=== PATIENT | male | born 1950 | race Caucasian/White ===

== ENCOUNTER → 2017-04-12 | Outpatient (CLI) | payer MEDICARE ==
[2017-04-15 10:52] LABS: Large VLDL Particle Number,NMR 6.2 nmol/L (<=2.7)
== END | disposition home or self-care (01) ==
LOC: LABWHC1 07:28
PROVIDERS: ATTEND Internal Medicine Cardiovascular Disease
DX: I25.10 Atherosclerotic heart disease of native coronary artery without angina pectoris (principal)
CPT/HCPCS: 36415; 83704

== ENCOUNTER → 2018-02-07 | Outpatient (CLI) | payer MEDICARE ==
[2018-02-10 16:06] LABS: Large VLDL Particle Number,NMR 3.8 nmol/L (<=2.7)
== END | disposition home or self-care (01) ==
LOC: LABWHC1 06:51
PROVIDERS: ATTEND Internal Medicine Cardiovascular Disease
DX: I25.10 Atherosclerotic heart disease of native coronary artery without angina pectoris (principal)
CPT/HCPCS: 36415; 83704

== ENCOUNTER 2019-03-01 18:18 | Emergency (ER) | payer MEDICARE ==
[2019-03-01 18:29] VITALS: RESP 18
[2019-03-01] MEDS ORDERED: SODIUM CHLORIDE 0.9% 1,000 ML IV STA (19:43)
[2019-03-01] MEDS ORDERED: PANTOPRAZOLE 40 MG/10 ML VIAL IVP STA (19:44)
[2019-03-01] MEDS ORDERED: LOPERAMIDE 2 MG CAP PO STA (19:48)
--- NOTE | 2019-03-01 19:53 | ED ---
General Adult HPI - General Source: patient Mode of arrival: ambulatory Limitations: no limitations <Scott Smalls - Last Filed: 03/02/19 05:51> <Higinio Nava - Last Filed: 03/02/19 07:31> - General Chief complaint: Nausea/Vomiting/Diarrhea Stated complaint: Diarrhea Time Seen by Provider: 03/01/19 19:30 - History of Present Illness Initial comments: Patient is 68-year-old male presenting to emergency Department with a chief complaint of diarrhea. Patient reports 8 days ago he was diagnosed with a sinus infection and given Augmentin. Patient was advised to take the medication with food. Patient reports over the last 4 days he has developed continuos diarrhea. Patient reports poor oral intake of food and liquids. Patient denies any nausea or vomiting. Patient reports the diarrhea has a foul odor. Patient denies hematochezia or melena. Patient reports suprapubic pressure. Patient denies increased urgency, frequency or dysuria. Patient denies any testicular swelling or pain. Patient denies taking medication to alleviate the symptoms. Patient denies any night sweats fevers or chills. Patient has no other complaints. (Scott Smalls) - Related Data Home Medications Medication Instructions Recorded Confirmed Aspirin EC [Ecotrin Low Dose] 81 mg PO DAILY 03/01/19 03/01/19 Atorvastatin [Lipitor] 40 mg PO DAILY 03/01/19 03/01/19 Ezetimibe 10 mg PO DAILY 03/01/19 03/01/19 Fenofibrate Nanocrystallized 145 mg PO DAILY 03/01/19 03/01/19 [Fenofibrate] Lisinopril [Zestril] 30 mg PO DAILY 03/01/19 03/01/19 Metoprolol Tartrate 25 mg PO BID 03/01/19 03/01/19 Montelukast Sodium [Singulair] 10 mg PO HS 03/01/19 03/01/19 Multivitamins, Thera [Multivitamin 1 tab PO DAILY 03/01/19 03/01/19 (formulary)] [place]-3 Acid Ethyl Esters [Lovaza] 1 gm PO QID 03/01/19 03/01/19 Omeprazole 20 mg PO BID 03/01/19 03/01/19 Tadalafil [Cialis] 5 mg PO DAILY 03/01/19 03/01/19 amLODIPine [Norvasc] 10 mg PO DAILY 03/01/19 03/01/19 Previous Rx's Medication Instructions Recorded metroNIDAZOLE [Flagyl] 500 mg PO QID #56 tab 03/01/19 Allergies Allergy/AdvReac Type Severity Reaction Status Date / Time No Known Allergies Allergy Verified 03/01/19 20:28 Review of Systems ROS Other: All systems not noted in ROS Statement are negative. <Scott Smalls - Last Filed: 03/02/19 05:51> ROS Other: All systems not noted in ROS Statement are negative. <Higinio Nava - Last Filed: 03/02/19 07:31> ROS Statement: Those systems with pertinent positive or pertinent negative responses have been documented in the HPI. Past Medical History Past Medical History: Hyperlipidemia, Myocardial Infarction ([place]) Additional Past Medical History / Comment(s): hernia History of Any Multi-Drug Resistant Organisms: None Reported Past Surgical History: Heart Catheterization With Stent Past Psychological History: No Psychological Hx Reported Smoking Status: Never smoker Past Alcohol Use History: Occasional Past Drug Use History: None Reported <Scott Smalls - Last Filed: 03/02/19 05:51> General Exam Limitations: no limitations General appearance: alert, in no apparent distress, obese Head exam: Present: atraumatic, normocephalic, normal inspection Eye exam: Present: normal appearance, PERRL, EOMI Pupils: Present: normal accommodation Neck exam: Present: normal inspection, full ROM Respiratory exam: Present: normal lung sounds bilaterally Cardiovascular Exam: Present: normal rhythm, tachycardia, normal heart sounds GI/Abdominal exam: Present: soft, tenderness (Mild suprapubic tenderness), normal bowel sounds. Absent: guarding, rebound, mass, hernia, other (Negative McBurney point tenderness, negative Rovsing, negative anterior, negative psoas) Extremities exam: Present: normal inspection, full ROM Back exam: Present: normal inspection, full ROM. Absent: CVA tenderness (R), CVA tenderness (L) Neurological exam: Present: alert, oriented X3 Psychiatric exam: Present: normal affect, normal mood Skin exam: Present: warm, intact, normal color <Scott Smalls - Last Filed: 03/02/19 05:51> Course Vital Signs 03/01/19 03/01/1903/01/19 18:25 22:04 23:48 Temperature 98.4 F 99.4 F 99.2 F Pulse Rate 121 H 107 H 114 H Respiratory 18 18 18 Rate Blood Pressure 94/64 126/85 124/99 O2 Sat by Pulse 99 98 97 Oximetry Medical Decision Making - Lab Data Result diagrams: 03/01/19 19:47 03/01/19 19:47 <Scott Smalls - Last Filed: 03/02/19 05:51> - Lab Data Result diagrams: 03/01/19 19:47 03/01/19 19:47 <Higinio Nava - Last Filed: 03/02/19 07:31> - Medical Decision Making Patient is a 68-year-old male presenting to the emergency department with a chief complaint of diarrhea 4 days. Patient was prescribed Augmentin for sinus infection and is currently on day 8 of the 10 day course. Patient reports foul-smelling diarrhea but denies any nausea or vomiting. Patient does have abdominal discomfort. Patient does have leukocytosis. A stool sample was obtained and tested positive for C. diff. Patient does not appear to have severe diarrhea or other symptoms. Patient is eating without issues. Patient will be discharged with a 14 day course of Flagyl. The importance of hygiene was thoroughly discussed with patient and prevention of spreading of C. diff. Patient advised to eat a BRAT diet. Strict return parameters were thoroughly discussed the patient was understanding and agreeable. No repeat testing is required. Patient advised to follow with primary care. Patient advised to return to emergency department if symptoms worsen. (Scott Smalls) I saw this patient in conjunction with the physician assistant paralegal. I performed independent history and physical exam. Agree with case management. (Higinio Nava) - Lab Data Lab Results 03/01/19 03/01/19 03/01/19 Range/Units 19:47 19:47 20:04 WBC 15.1 H (3.8-10.6) k/uL RBC 4.44 (4.30-5.90) m/uL Hgb 14.1 (13.0-17.5) gm/dL Hct 41.2 (39.0-53.0) % MCV 92.7 (80.0-100.0) fL MCH 31.7 (25.0-35.0) pg MCHC 34.2 (31.0-37.0) g/dL RDW 14.0 (11.5-15.5) % Plt Count 208 (150-450) k/uL Neutrophils % 81 % Lymphocytes % 10 % Monocytes % 6 % Eosinophils % 1 % Basophils % 0 % Neutrophils # 12.2 H (1.3-7.7) k/uL Lymphocytes # 1.5 (1.0-4.8) k/uL Monocytes # 1.0 (0-1.0) k/uL Eosinophils # 0.1 (0-0.7) k/uL Basophils # 0.1 (0-0.2) k/uL Sodium 137 (137-145) mmol/L Potassium 3.9 (3.5-5.1) mmol/L Chloride 102 (98-107) mmol/L Carbon Dioxide 25 (22-30) mmol/L Anion Gap 10 mmol/L BUN 19 (9-20) mg/dL Creatinine 1.03 (0.66-1.25) mg/dL Est GFR (CKD-EPI)AfAm 87 (>60 ml/min/1.73 sqM) Est GFR (CKD-EPI)NonAf 75 (>60 ml/min/1.73 sqM) Glucose 125 H (74-99) mg/dL Calcium 9.1 (8.4-10.2) mg/dL Total Bilirubin 0.9 (0.2-1.3) mg/dL AST 28 (17-59) U/L ALT 26 (21-72) U/L Alkaline Phosphatase 51 (38-126) U/L Total Protein 6.9 (6.3-8.2) g/dL Albumin 4.0 (3.5-5.0) g/dL Amylase <30 L (30-110) U/L Lipase 26 (23-300) U/L Urine Color Yellow Urine Appearance Clear (Clear) Urine pH 5.5 (5.0-8.0) Ur Specific [place] 1.030 (1.001-1.035) Urine Protein 1+ H (Negative) Urine Glucose (UA) Negative (Negative) Urine Ketones Negative (Negative) Urine Blood Negative (Negative) Urine Nitrite Negative (Negative) Urine Bilirubin Negative (Negative) Urine Urobilinogen 2.0 (<2.0) mg/dL Ur Leukocyte Esterase Negative (Negative) Urine RBC 3 (0-5) /hpf Urine WBC 5 (0-5) /hpf Ur Squamous Epith Cells <1 (0-4) /hpf Hyaline Casts 6 H (0-2) /lpf Urine Mucus Moderate H (None) /hpf C. difficile (EIA) Intrp (Negative) 03/01/19 Range/Units 21:34 WBC (3.8-10.6) k/uL RBC (4.30-5.90) m/uL Hgb (13.0-17.5) gm/dL Hct (39.0-53.0) % MCV (80.0-100.0) fL MCH (25.0-35.0) pg MCHC (31.0-37.0) g/dL RDW (11.5-15.5) % Plt Count (150-450) k/uL Neutrophils % % Lymphocytes % % Monocytes % % Eosinophils % % Basophils % % Neutrophils # (1.3-7.7) k/uL Lymphocytes # (1.0-4.8) k/uL Monocytes # (0-1.0) k/uL Eosinophils # (0-0.7) k/uL Basophils # (0-0.2) k/uL Sodium (137-145) mmol/L Potassium (3.5-5.1) mmol/L Chloride (98-107) mmol/L Carbon Dioxide (22-30) mmol/L Anion Gap mmol/L BUN (9-20) mg/dL Creatinine (0.66-1.25) mg/dL Est GFR (CKD-EPI)AfAm (>60 ml/min/1.73 sqM) Est GFR (CKD-EPI)NonAf (>60 ml/min/1.73 sqM) Glucose (74-99) mg/dL Calcium (8.4-10.2) mg/dL Total Bilirubin (0.2-1.3) mg/dL AST (17-59) U/L ALT (21-72) U/L Alkaline Phosphatase (38-126) U/L Total Protein (6.3-8.2) g/dL Albumin (3.5-5.0) g/dL Amylase (30-110) U/L Lipase (23-300) U/L Urine Color Urine Appearance (Clear) Urine pH (5.0-8.0) Ur Specific [place] (1.001-1.035) Urine Protein (Negative) Urine Glucose (UA) (Negative) Urine Ketones (Negative) Urine Blood (Negative) Urine Nitrite (Negative) Urine Bilirubin (Negative) Urine Urobilinogen (<2.0) mg/dL Ur Leukocyte Esterase (Negative) Urine RBC (0-5) /hpf Urine WBC (0-5) /hpf Ur Squamous Epith Cells (0-4) /hpf Hyaline Casts (0-2) /lpf Urine Mucus (None) /hpf C. difficile (EIA) Intrp Positive A (Negative) Disposition Is patient prescribed a controlled substance at d/c from ED?: No Time of Disposition: 23:26 <Scott Smalls - Last Filed: 03/02/19 05:51> <Higinio Nava - Last Filed: 03/02/19 07:31> Clinical Impression: Clostridioides difficile infection Disposition: HOME SELF-CARE Condition: Stable Instructions (If sedation given, give patient instructions): C Diff (Clostridium Difficile) Infection (ED), Nutrition Tips for Relief of Diarrhea (ED) Additional Instructions: Please take prescribed medication as directed. Please follow BRAT diet. Please return to emergency department if symptoms worsen. Prescriptions: metroNIDAZOLE [Flagyl] 500 mg PO QID #56 tab Referrals: Miriam Evans III, MD [Primary Care Provider] - 1-2 days
[2019-03-01 20:08] LABS: Basophils # (A) 0.1 k/uL (0-0.2); Basophils % (A) 0 %; Eosinophils # (A) 0.1 k/uL (0-0.7); Eosinophils % (A) 1 %; HCT 41.2 % (39.0-53.0); HGB 14.1 gm/dL (13.0-17.5); Lymphocytes # (A) 1.5 k/uL (1.0-4.8); Lymphocytes % (A) 10 %; MCH 31.7 pg (25.0-35.0); MCHC 34.2 g/dL (31.0-37.0); MCV 92.7 fL (80.0-100.0); Mean Platelet Volume 7.7; Monocytes % (A) 6 %; Neutrophils # (A) 12.2 k/uL (1.3-7.7); Neutrophils % (A) 81 %; Platelet Count 208 k/uL (150-450); RBC 4.44 m/uL (4.30-5.90); WBC 15.1 k/uL (3.8-10.6)
[2019-03-01 20:24] LABS: ALT 26 U/L (21-72); AST 28 U/L (17-59); African American GFR (CKD) 87 (>60 ml/min/1.73 sqM); Alkaline Phosphatase 51 U/L (38-126); Amylase <30 U/L (30-110); Anion Gap 10 mmol/L; Blood Urea Nitrogen 19 mg/dL (9-20); Calcium 9.1 mg/dL (8.4-10.2); Carbon Dioxide 25 mmol/L (22-30); Chloride 102 mmol/L (98-107); Glucose 125 mg/dL (74-99); Potassium 3.9 mmol/L (3.5-5.1); Sodium 137 mmol/L (137-145); Total Bilirubin 0.9 mg/dL (0.2-1.3); Total Protein 6.9 g/dL (6.3-8.2)
[2019-03-01 20:32] LABS: Appearance,Urine Clear (Clear); Bilirubin,Urine Negative (Negative); Blood,Urine Negative (Negative); Color,Urine Yellow; Glucose,Urine (UA) Negative (Negative); Hyaline Casts,Urine 6 /lpf (0-2); Ketones,Urine Negative (Negative); Leukocyte Esterase,Urine Negative (Negative); Mucus,Urine Moderate /hpf; Nitrite,Urine Negative (Negative); PH, Urine 5.5 (5.0-8.0); Protein,Urine 1+ (Negative); RBC,Urine 3 /hpf (0-5); Squamous Epithelial Cell,Urine <1 /hpf (0-4); WBC,Urine 5 /hpf (0-5)
[2019-03-01] MEDS ORDERED: metroNIDAZOLE 500 MG TAB PO STA ×2 (23:21→23:36)
[2019-03-01 23:49] VITALS: BP 124/99; PULSE 114; TEMP 99.2
== END 2019-03-01 23:48 | disposition home or self-care (01) ==
LOC: EC 18:18
DX: A04.72 Enterocolitis due to Clostridium difficile, not specified as recurrent (principal); J32.9 Chronic sinusitis, unspecified; D72.829 Elevated white blood cell count, unspecified; I25.2 Old myocardial infarction; E78.5 Hyperlipidemia, unspecified; Z79.82 Long term (current) use of aspirin; Z79.899 Other long term (current) drug therapy; Z95.5 Presence of coronary angioplasty implant and graft
CPT/HCPCS: 36415; 80053; 82150; 83690; 85025; 81001; 87324; 99284; 96374; 96361 ×4; C9113

== ENCOUNTER 2019-03-25 07:16 | Emergency (ER) | payer MEDICARE ==
[2019-03-25] MEDS ORDERED: SODIUM CHLORIDE 0.9% 1,000 ML IV STA (07:56)
--- NOTE | 2019-03-25 08:02 | ED ---
General Adult HPI - General Chief complaint: Nausea/Vomiting/Diarrhea Stated complaint: poss c-diff Time Seen by Provider: 03/25/19 07:20 Source: patient, RN notes reviewed Mode of arrival: ambulatory Limitations: no limitations - History of Present Illness Initial comments: This is a 68-year-old male who presents to the emergency department complaining of having diarrhea. Patient states he had C. diff about 2-1/2 weeks ago he took his antibiotics for 14 days was feeling better and this past Wednesday started having diarrhea again. Patient states he is having diarrhea quite regularly he is having no abdominal pain no fever no chills he states this is better than the first time he had it but it continues to be occurring 4 days later. Patient d enies any vomiting. Patient denies any chest pain difficulty breathing shortness of breath. Patient denies any abdominal pain. Patient denies any back pain. Patient denies any dysuria hematuria urinary frequency. Patient denies lightheadedness or dizziness. - Related Data Home Medications Medication Instructions Recorded Confirmed Aspirin EC [Ecotrin Low Dose] 81 mg PO DAILY 03/01/19 03/25/19 Atorvastatin [Lipitor] 40 mg PO DAILY 03/01/19 03/25/19 Ezetimibe 10 mg PO DAILY 03/01/19 03/25/19 Fenofibrate Nanocrystallized 145 mg PO DAILY 03/01/19 03/25/19 [Fenofibrate] Lisinopril [Zestril] 30 mg PO DAILY 03/01/19 03/25/19 Metoprolol Tartrate 25 mg PO BID 03/01/19 03/25/19 Montelukast Sodium [Singulair] 10 mg PO HS 03/01/19 03/25/19 Multivitamins, Thera [Multivitamin 1 tab PO DAILY 03/01/19 03/25/19 (formulary)] [place]-3 Acid Ethyl Esters [Lovaza] 1 gm PO QID 03/01/19 03/25/19 Omeprazole 20 mg PO BID 03/01/19 03/25/19 Tadalafil [Cialis] 5 mg PO DAILY 03/01/19 03/25/19 amLODIPine [Norvasc] 10 mg PO DAILY 03/01/19 03/25/19 Previous Rx's Medication Instructions Recorded Vancomycin HCl [Vancocin HCl] 250 mg PO QID #84 capsule 03/25/19 Allergies Allergy/AdvReac Type Severity Reaction Status Date / Time No Known Allergies Allergy Verified 03/25/19 08:09 Review of Systems ROS Statement: Those systems with pertinent positive or pertinent negative responses have been documented in the HPI. ROS Other: All systems not noted in ROS Statement are negative. Past Medical History Past Medical History: Hyperlipidemia, Myocardial Infarction ([place]) Additional Past Medical History / Comment(s): hernia History of Any Multi-Drug Resistant Organisms: C-DIFF Date of last positivie culture/infection: 03/10/2019 Past Surgical History: Heart Catheterization With Stent Past Psychological History: No Psychological Hx Reported Smoking Status: Never smoker Past Alcohol Use History: Occasional Past Drug Use History: None Reported General Exam - General Exam Comments Initial Comments: GENERAL: Patient is well-developed and well-nourished. Patient is nontoxic and well- hydrated and is in mild distress. ENT: Neck is soft and supple. No significant lymphadenopathy is noted. Oropharynx is clear. Moist mucous membranes. Neck has full range of motion without eliciting any pain. EYES: The sclera were anicteric and conjunctiva were pink and moist. Extraocular movements were intact and pupils were equal round and reactive to light. Eyelids were unremarkable. PULMONARY: Unlabored respirations. Good breath sounds bilaterally. No audible rales rhonchi or wheezing was noted. CARDIOVASCULAR: There is a regular rate and rhythm without any murmurs gallops or rubs. ABDOMEN: Soft and nontender with normal bowel sounds. SKIN: Skin is clear with no lesions or rashes and otherwise unremarkable. NEUROLOGIC: Patient is alert and oriented x3. Cranial nerves II through XII are grossly intact. Motor and sensory are also intact. Normal speech, volume and content. Symmetrical smile. MUSCULOSKELETAL: Normal extremities with adequate strength and full range of motion. No lower extremity swelling or edema. No calf tenderness. LYMPHATICS: No significant lymphadenopathy is noted PSYCHIATRIC: Normal psychiatric evaluation. Limitations: no limitations Course Vital Signs 03/25/19 03/25/19 07:20 08:28 Temperature 97.8 F Pulse Rate 121 H 77 Respiratory 18 16 Rate Blood Pressure 122/73 O2 Sat by Pulse 98 99 Oximetry Medical Decision Making - Medical Decision Making I spoke with Dr. Atkins she agreed that the patient could be discharged home on vancomycin this time as opposed Flagyl. Patient was in agreement with this. - Lab Data Result diagrams: 03/25/19 08:10 03/25/19 08:10 Lab Results 03/25/19 03/25/19 03/25/19 Range/Units 08:10 08:10 08:10 WBC 10.3 (3.8-10.6) k/uL RBC 4.23 L (4.30-5.90) m/uL Hgb 13.2 (13.0-17.5) gm/dL Hct 39.7 (39.0-53.0) % MCV 93.9 (80.0-100.0) fL MCH 31.3 (25.0-35.0) pg MCHC 33.3 (31.0-37.0) g/dL RDW 13.1 (11.5-15.5) % Plt Count 231 (150-450) k/uL Neutrophils % 77 % Lymphocytes % 12 % Monocytes % 7 % Eosinophils % 3 % Basophils % 0 % Neutrophils # 7.9 H (1.3-7.7) k/uL Lymphocytes # 1.2 (1.0-4.8) k/uL Monocytes # 0.7 (0-1.0) k/uL Eosinophils # 0.3 (0-0.7) k/uL Basophils # 0.0 (0-0.2) k/uL Sodium 141 (137-145) mmol/L Potassium 3.9 (3.5-5.1) mmol/L Chloride 107 (98-107) mmol/L Carbon Dioxide 24 (22-30) mmol/L Anion Gap 10 mmol/L BUN 11 (9-20) mg/dL Creatinine 0.84 (0.66-1.25) mg/dL Est GFR (CKD-EPI)AfAm >90 (>60 ml/min/1.73 sqM) Est GFR (CKD-EPI)NonAf >90 (>60 ml/min/1.73 sqM) Glucose 141 H (74-99) mg/dL Calcium 9.3 (8.4-10.2) mg/dL Total Bilirubin 0.9 (0.2-1.3) mg/dL AST 25 (17-59) U/L ALT 28 (21-72) U/L Alkaline Phosphatase 45 (38-126) U/L Total Protein 6.9 (6.3-8.2) g/dL Albumin 4.1 (3.5-5.0) g/dL Amylase <30 L (30-110) U/L Lipase 125 (23-300) U/L C. difficile (EIA) Intrp Positive A (Negative) Disposition Clinical Impression: Clostridium difficile diarrhea Disposition: HOME SELF-CARE Condition: Good Instructions (If sedation given, give patient instructions): C Diff (Clostridium Difficile) Infection (ED) Prescriptions: Vancomycin HCl [Vancocin HCl] 250 mg PO QID #84 capsule Is patient prescribed a controlled substance at d/c from ED?: No Referrals: Miriam Evans III, MD [Primary Care Provider] - 1-2 days Time of Disposition: 11:51
[2019-03-25 08:38] LABS: Basophils % (A) 0 %; Eosinophils # (A) 0.3 k/uL (0-0.7); Eosinophils % (A) 3 %; HCT 39.7 % (39.0-53.0); HGB 13.2 gm/dL (13.0-17.5); Lymphocytes # (A) 1.2 k/uL (1.0-4.8); Lymphocytes % (A) 12 %; MCH 31.3 pg (25.0-35.0); MCHC 33.3 g/dL (31.0-37.0); MCV 93.9 fL (80.0-100.0); Mean Platelet Volume 6.2; Monocytes # (A) 0.7 k/uL (0-1.0); Monocytes % (A) 7 %; Neutrophils # (A) 7.9 k/uL (1.3-7.7); Neutrophils % (A) 77 %; Platelet Count 231 k/uL (150-450); RBC 4.23 m/uL (4.30-5.90); RDW 13.1 % (11.5-15.5); WBC 10.3 k/uL (3.8-10.6)
[2019-03-25 08:43] LABS: ALT 28 U/L (21-72); AST 25 U/L (17-59); African American GFR (CKD) >90 (>60 ml/min/1.73 sqM); Albumin 4.1 g/dL (3.5-5.0); Alkaline Phosphatase 45 U/L (38-126); Amylase <30 U/L (30-110); Anion Gap 10 mmol/L; Blood Urea Nitrogen 11 mg/dL (9-20); Calcium 9.3 mg/dL (8.4-10.2); Carbon Dioxide 24 mmol/L (22-30); Chloride 107 mmol/L (98-107); Glucose 141 mg/dL (74-99); Potassium 3.9 mmol/L (3.5-5.1); Sodium 141 mmol/L (137-145); Total Bilirubin 0.9 mg/dL (0.2-1.3); Total Protein 6.9 g/dL (6.3-8.2)
[2019-03-25 11:53] VITALS: BP 122/68; PULSE 69; RESP 18; TEMP 97
== END 2019-03-25 11:55 | disposition home or self-care (01) ==
LOC: EC 07:16
DX: A04.72 Enterocolitis due to Clostridium difficile, not specified as recurrent (principal); E78.5 Hyperlipidemia, unspecified; I25.2 Old myocardial infarction; Z79.82 Long term (current) use of aspirin; Z79.899 Other long term (current) drug therapy; Z95.5 Presence of coronary angioplasty implant and graft; Z86.19 Personal history of other infectious and parasitic diseases
CPT/HCPCS: 36415; 80053; 82150; 83690; 85025; 87324; 96360; 99284

== ENCOUNTER → 2019-06-23 | Outpatient (CLI) | payer MEDICARE ==
[2019-06-23 08:00] LABS: Basophils % (A) 1 %; Eosinophils # (A) 0.3 k/uL (0-0.7); Eosinophils % (A) 6 %; HCT 42.2 % (39.0-53.0); HGB 13.9 gm/dL (13.0-17.5); Lymphocytes # (A) 1.9 k/uL (1.0-4.8); Lymphocytes % (A) 35 %; MCH 30.5 pg (25.0-35.0); MCHC 32.8 g/dL (31.0-37.0); MCV 92.8 fL (80.0-100.0); Mean Platelet Volume 7.8; Monocytes # (A) 0.4 k/uL (0-1.0); Monocytes % (A) 7 %; Neutrophils # (A) 2.6 k/uL (1.3-7.7); Neutrophils % (A) 48 %; Platelet Count 173 k/uL (150-450); RBC 4.55 m/uL (4.30-5.90); RDW 13.3 % (11.5-15.5); WBC 5.4 k/uL (3.8-10.6)
[2019-06-23 18:13] LABS: African American GFR (CKD) 102.1 (60.0-200.0); Albumin 4.8 g/dL (3.80-4.90); Albumin/Globulin Ratio 2.53 (1.60-3.17); Anion Gap 9.8 mmol/L (4.00-12.00); BUN/Creat Ratio 23.33 Ratio (12.00-20.00); Calcium 9.3 mg/dL (8.7-10.3); Carbon Dioxide 25.2 mmol/L (21.6-31.8); Chol/HDL Ratio 2.81; Globulin 1.9 g/dL (1.6-3.3); LDL Cholesterol,Calculated 31.2 mg/dL (0.0-131.0); Non-African American GFR(CKD) 88.1 (60.0-200.0); Total Bilirubin 0.9 mg/dL (0.3-1.2); Total Protein 6.7 g/dL (6.2-8.2); VLDL Calculation 33.8 mg/dL (5.00-40.00)
== END | disposition home or self-care (01) ==
LOC: LABWHC1 07:33
PROVIDERS: ATTEND Family Medicine
DX: Z00.01 Encounter for general adult medical examination with abnormal findings (principal); I10 Essential (primary) hypertension; N40.0 Benign prostatic hyperplasia without lower urinary tract symptoms; I25.10 Atherosclerotic heart disease of native coronary artery without angina pectoris
CPT/HCPCS: 36415; 80053; 80061; 84153; 85025

== ENCOUNTER → 2020-06-24 | Outpatient (CLI) | payer MEDICARE ==
[2020-06-24 08:27] LABS: Basophils # (A) 0.1 k/uL (0-0.2); Basophils % (A) 1 %; Eosinophils # (A) 0.2 k/uL (0-0.7); Eosinophils % (A) 4 %; HCT 40.6 % (39.0-53.0); HGB 14.1 gm/dL (13.0-17.5); Lymphocytes # (A) 1.8 k/uL (1.0-4.8); Lymphocytes % (A) 40 %; MCH 32.8 pg (25.0-35.0); MCHC 34.8 g/dL (31.0-37.0); MCV 94.1 fL (80.0-100.0); Mean Platelet Volume 7.4; Monocytes # (A) 0.4 k/uL (0-1.0); Monocytes % (A) 8 %; Neutrophils # (A) 2.1 k/uL (1.3-7.7); Neutrophils % (A) 45 %; Platelet Count 160 k/uL (150-450); RBC 4.32 m/uL (4.30-5.90); RDW 12.8 % (11.5-15.5); WBC 4.6 k/uL (3.8-10.6)
[2020-06-24 10:29] LABS: African American GFR (CKD) 89.2 (60.0-200.0); Albumin 4.6 g/dL (3.80-4.90); Albumin/Globulin Ratio 2.09 (1.60-3.17); Anion Gap 7.5 mmol/L (4.00-12.00); Calcium 9.1 mg/dL (8.7-10.3); Carbon Dioxide 27.5 mmol/L (21.6-31.8); Chol/HDL Ratio 3.16; Globulin 2.2 g/dL (1.6-3.3); Potassium 4.1 mmol/L (3.5-5.5); Total Bilirubin 0.7 mg/dL (0.2-1.2); Total Protein 6.8 g/dL (6.2-8.2)
[2020-06-24 10:37] LABS: PSA Annual Screen 0.6 ng/mL (0.0-4.0)
== END | disposition home or self-care (01) ==
LOC: LABWHC1 07:28
PROVIDERS: ATTEND Family Medicine
DX: Z00.01 Encounter for general adult medical examination with abnormal findings (principal); I25.10 Atherosclerotic heart disease of native coronary artery without angina pectoris; E78.2 Mixed hyperlipidemia; N40.0 Benign prostatic hyperplasia without lower urinary tract symptoms; I10 Essential (primary) hypertension
CPT/HCPCS: 80061; 80053; 85025; 36415; G0103

== ENCOUNTER → 2021-06-23 | Outpatient (CLI) | payer MEDICARE ==
[2021-06-23 15:01] LABS: Basophils # (A) 0.05 X 10*3/uL (0.00-0.10); Eosinophils # (A) 0.21 X 10*3/uL (0.04-0.35); Eosinophils % (A) 4.2 %; HCT 40.6 % (39.6-50.0); HGB 13.2 g/dL (13.0-17.0); Lymphocytes # (A) 2.17 X 10*3/uL (0.90-5.00); Lymphocytes % (A) 43.6 %; MCH 31.4 pg (27.0-32.0); MCHC 32.5 g/dL (32.0-37.0); MCV 96.4 fL (80.0-97.0); Monocytes # (A) 0.52 X 10*3/uL (0.20-1.00); Monocytes % (A) 10.4 %; Neutrophils # (A) 2.02 X 10*3/uL (1.80-7.70); Neutrophils % (A) 40.6 %; Platelet Count 163 X 10*3/uL (140-440); RBC 4.21 X 10*6/uL (4.40-5.60); RDW 12.6 % (11.5-14.5); WBC 4.98 X 10*3/uL (4.50-10.00)
[2021-06-23 15:52] LABS: ALT 41 U/L (10-49); AST 47 U/L (14-35); African American GFR (CKD) 100.6 (60.0-200.0); Albumin 4.5 g/dL (3.8-4.9); Albumin/Globulin Ratio 2.05 (1.60-3.17); Alkaline Phosphatase 52 U/L (41-126); Blood Urea Nitrogen 16.2 mg/dL (9.0-27.0); Calcium 9.1 mg/dL (8.7-10.3); Carbon Dioxide 23.7 mmol/L (20.0-27.5); Chloride 105 mmol/L (96-109); Chol/HDL Ratio 3.14 Ratio; Globulin 2.2 g/dL (1.6-3.3); Glucose 151 mg/dL (70-110); LDL Cholesterol,Calculated 22.3 mg/dL (0.0-131.0); Non-African American GFR(CKD) 86.8 (60.0-200.0); Potassium 4.3 mmol/L (3.5-5.5); Sodium 142 mmol/L (135-145); Total Protein 6.7 g/dL (6.2-8.2)
== END | disposition home or self-care (01) ==
LOC: LABWHC1 07:55
PROVIDERS: ATTEND Family Medicine
DX: Z00.01 Encounter for general adult medical examination with abnormal findings (principal); I10 Essential (primary) hypertension; I25.10 Atherosclerotic heart disease of native coronary artery without angina pectoris; E78.2 Mixed hyperlipidemia; N40.0 Benign prostatic hyperplasia without lower urinary tract symptoms
CPT/HCPCS: 80061; 80053; 85025; 36415; G0103

== ENCOUNTER → 2021-09-10 | Outpatient (CLI) | payer MEDICARE ==
[2021-09-10 14:38] LABS: ALT 47 U/L (10-49); AST 45 U/L (14-35); Chol/HDL Ratio 3.65 Ratio; LDL Cholesterol,Calculated 31.1 mg/dL (0.0-131.0)
== END | disposition home or self-care (01) ==
LOC: LABWHC1 07:44
PROVIDERS: ATTEND Internal Medicine Interventional Cardiology
DX: I25.10 Atherosclerotic heart disease of native coronary artery without angina pectoris (principal); E78.5 Hyperlipidemia, unspecified
CPT/HCPCS: 36415; 80061; 84450; 84460

== ENCOUNTER → 2022-09-10 | Outpatient (CLI) | payer MEDICARE ==
[2022-09-10 10:50] LABS: Chol/HDL Ratio 3.51 Ratio; LDL Cholesterol,Calculated 31.3 mg/dL (0.0-131.0)
== END | disposition home or self-care (01) ==
LOC: LABWHC1 06:51
PROVIDERS: ATTEND Internal Medicine Interventional Cardiology
DX: E78.5 Hyperlipidemia, unspecified (principal)
CPT/HCPCS: 36415; 80061

== ENCOUNTER → 2023-09-13 | Outpatient (CLI) | payer MEDICARE ==
[2023-09-13 11:25] LABS: Basophils # (A) 0.05 X 10*3/uL (0.00-0.10); Basophils % (A) 1.1 %; Eosinophils # (A) 0.17 X 10*3/uL (0.04-0.35); Eosinophils % (A) 3.8 %; HCT 40.2 % (39.6-50.0); HGB 13.7 g/dL (13.0-17.0); Lymphocytes # (A) 1.84 X 10*3/uL (0.90-5.00); Lymphocytes % (A) 40.7 %; MCH 31.3 pg (27.0-32.0); MCHC 34.1 g/dL (32.0-37.0); MCV 91.8 FL (80.0-97.0); Mean Platelet Volume 10.5 FL (9.5-12.2); Monocytes % (A) 8.8 %; NRBC Per 100 WBC 0 X 10*3/uL (0.00-0.01); Neutrophils # (A) 2.05 X 10*3/uL (1.80-7.70); Neutrophils % (A) 45.4 %; Platelet Count 146 X 10*3/uL (140-440); RBC 4.38 X 10*6/uL (4.40-5.60); RDW 12.6 % (11.5-14.5); WBC 4.52 X 10*3/uL (4.50-10.00)
[2023-09-13 19:06] LABS: ALT 38 U/L (10-49); AST 40 U/L (14-35); Albumin 4.3 g/dL (3.8-4.9); Albumin/Globulin Ratio 1.79 Ratio (1.60-3.17); Alkaline Phosphatase 93 U/L (41-126); BUN/Creat Ratio 18.86 Ratio (12.00-20.00); Blood Urea Nitrogen 13.2 mg/dL (9.0-27.0); Carbon Dioxide 27.8 mmol/L (21.6-31.8); Chloride 105 mmol/L (96-109); Chol/HDL Ratio 2.89 Ratio; Globulin 2.4 g/dL (1.6-3.3); Glucose 138 mg/dL (70-110); Potassium 3.8 mmol/L (3.5-5.5); Sodium 143 mmol/L (135-145); Total Bilirubin 0.8 mg/dL (0.3-1.2); Total Protein 6.7 g/dL (6.2-8.2)
[2023-09-13 19:07] LABS: Prostate Specific Antigen 0.62 ng/mL (0.000-6.500)
== END | disposition home or self-care (01) ==
LOC: LABWHC1 07:24
PROVIDERS: ATTEND Family Medicine
DX: E11.65 Type 2 diabetes mellitus with hyperglycemia (principal); I25.10 Atherosclerotic heart disease of native coronary artery without angina pectoris; N40.0 Benign prostatic hyperplasia without lower urinary tract symptoms; E53.8 Deficiency of other specified B group vitamins; E55.9 Vitamin D deficiency, unspecified
CPT/HCPCS: 36415; 80053; 80061; 82306; 82607; 83036; 84153; 84443; 85025

== ENCOUNTER → 2024-04-29 | Outpatient (CLI) | payer MEDICARE ==
[2024-04-29 13:31] LABS: Basophils # (A) 0.04 X 10*3/uL (0.00-0.10); Basophils % (A) 0.7 %; Eosinophils # (A) 0.33 X 10*3/uL (0.04-0.35); Eosinophils % (A) 6.1 %; HCT 42.1 % (39.6-50.0); HGB 13.9 g/dL (13.0-17.0); Lymphocytes # (A) 1.59 X 10*3/uL (0.90-5.00); Lymphocytes % (A) 29.3 %; MCH 30.7 pg (27.0-32.0); MCV 92.9 FL (80.0-97.0); Mean Platelet Volume 10.4 FL (9.5-12.2); Monocytes # (A) 0.53 X 10*3/uL (0.20-1.00); Monocytes % (A) 9.8 %; NRBC Per 100 WBC 0 X 10*3/uL (0.00-0.01); Neutrophils # (A) 2.92 X 10*3/uL (1.80-7.70); Neutrophils % (A) 53.9 %; Platelet Count 177 X 10*3/uL (140-440); RBC 4.53 X 10*6/uL (4.40-5.60); RDW 12.3 % (11.5-14.5); WBC 5.42 X 10*3/uL (4.50-10.00)
[2024-04-29 13:34] LABS: ALT 29 U/L (10-49); AST 33 U/L (14-35); Albumin 4.4 g/dL (3.8-4.9); Albumin/Globulin Ratio 1.91 Ratio (1.60-3.17); Alkaline Phosphatase 95 U/L (41-126); BUN/Creat Ratio 25.43 Ratio (12.00-20.00); Blood Urea Nitrogen 17.8 mg/dL (9.0-27.0); Calcium 9.5 mg/dL (8.7-10.3); Carbon Dioxide 28.5 mmol/L (21.6-31.8); Chloride 104 mmol/L (96-109); Chol/HDL Ratio 2.68 Ratio; Creatine Kinase 103 U/L (35-257); Globulin 2.3 g/dL (1.6-3.3); Glucose 125 mg/dL (70-110); LDL Cholesterol,Calculated 42.4 mg/dL (0.0-131.0); Potassium 4.3 mmol/L (3.5-5.5); Sodium 145 mmol/L (135-145); T4, Free (Free Thyroxine) 1.04 ng/dL (0.80-1.80); Total Bilirubin 0.9 mg/dL (0.3-1.2); Total Protein 6.7 g/dL (6.2-8.2)
== END | disposition home or self-care (01) ==
LOC: LABWHC1 08:02
PROVIDERS: ATTEND Family Medicine
DX: I25.10 Atherosclerotic heart disease of native coronary artery without angina pectoris (principal); E11.65 Type 2 diabetes mellitus with hyperglycemia; E78.2 Mixed hyperlipidemia
CPT/HCPCS: 36415; 80053; 80061; 82550; 83036; 84439; 84443; 85025

== ENCOUNTER → 2024-10-23 | Outpatient (CLI) | payer MEDICARE ==
[2024-10-23 10:35] LABS: BUN/Creat Ratio 19.88 Ratio (12.00-20.00); Blood Urea Nitrogen 15.9 mg/dL (9.0-27.0); Carbon Dioxide 25.5 mmol/L (21.6-31.8); Chloride 104 mmol/L (96-109); Chol/HDL Ratio 3.53 Ratio; Glucose 135 mg/dL (70-110); Potassium 4.1 mmol/L (3.5-5.5); Sodium 141 mmol/L (135-145)
[2024-10-23 10:36] LABS: ALT 35 U/L (10-49); AST 36 U/L (14-35); Albumin 4.3 g/dL (3.8-4.9); Albumin/Globulin Ratio 1.87 Ratio (1.60-3.17); Alkaline Phosphatase 100 U/L (41-126); Calcium 9.3 mg/dL (8.7-10.3); Globulin 2.3 g/dL (1.6-3.3); T4, Free (Free Thyroxine) 1.05 ng/dL (0.80-1.80); Total Bilirubin 0.6 mg/dL (0.3-1.2); Total Protein 6.6 g/dL (6.2-8.2)
[2024-10-23 13:37] LABS: Microalbumin Creatinine Ratio <8 mg/g Cr (0-30)
[2024-10-23 17:50] LABS: Basophils # (A) 0.05 X 10*3/uL (0.00-0.10); Basophils % (A) 0.9 %; Eosinophils # (A) 0.17 X 10*3/uL (0.04-0.35); Eosinophils % (A) 2.9 %; HCT 42.7 % (39.6-50.0); Lymphocytes # (A) 1.69 X 10*3/uL (0.90-5.00); MCH 31.3 pg (27.0-32.0); MCHC 32.8 g/dL (32.0-37.0); MCV 95.5 FL (80.0-97.0); Mean Platelet Volume 10.9 FL (9.5-12.2); Monocytes # (A) 0.61 X 10*3/uL (0.20-1.00); Monocytes % (A) 10.5 %; NRBC Per 100 WBC 0 X 10*3/uL (0.00-0.01); Neutrophils % (A) 56.5 %; Platelet Count 178 X 10*3/uL (140-440); RBC 4.47 X 10*6/uL (4.40-5.60); RDW 12.7 % (11.5-14.5); WBC 5.83 X 10*3/uL (4.50-10.00)
== END | disposition home or self-care (01) ==
LOC: LABWHC1 07:08
PROVIDERS: ATTEND Family Medicine
DX: I25.10 Atherosclerotic heart disease of native coronary artery without angina pectoris (principal); E78.2 Mixed hyperlipidemia; E11.65 Type 2 diabetes mellitus with hyperglycemia; N52.9 Male erectile dysfunction, unspecified; N40.0 Benign prostatic hyperplasia without lower urinary tract symptoms
CPT/HCPCS: 36415; 80053; 80061; 82043; 82570; 83036; 84439; 84443; 85025